=== PATIENT | male | born 1960 | race Caucasian/White ===

== ENCOUNTER → 2017-03-10 | Outpatient (CLI) | payer BC ==
--- NOTE | 2017-03-11 12:27 | SLEEPCENT ---
DATE OF STUDY: 03/10/2017 ORDERED BY: Birdie Persaud NP Nocturnal polysomnography was performed for the titration of pressure therapy in this patient with very severe obstructive sleep apnea syndrome. Apnea hypopnea index was 75. For testing, the patient was fit with a [employer] full face mask of medium sized. 4 cm of water pressure were applied to the circuit and the lights were extinguished. 8 hours and 4 minutes of data were reviewed. There were 448 minutes of sleep identified. Sleep latency was short at 1.5 minutes. Rapid eye movement (REM) latency was normal at 71 minutes. Sleep architecture improved over the course of the study. There were 5 REM periods appreciated. Overall sleep efficiency was 93.7%. The patient's EKG showed a sinus rhythm with an average heart rate of 74 beats per minute. EEG showed normal waveforms for awake and sleep stages. Persistence of respiratory events prompted and increase in CPAP pressure. When the patient turned supine, some central events emerged late in the study. Best sleep was seen on a CPAP pressure of +12. Limb activity seen early in the study abated later in the test and with CPAP, oxygen saturations remained 90% plus. IMPRESSION: Severe obstructive sleep apnea syndrome (G47.33). RECOMMENDATION: Nightly use of pressure at 12 cm of water. Close clinical followup is also recommended given the severity of this patient's condition.
== END ==
LOC: M SLEEP 19:09
PROVIDERS: ATTEND Nurse Practitioner Adult Health
DX: G47.33 Obstructive sleep apnea (adult) (pediatric) (principal)